=== PATIENT | female | born 1980 | race Hispanic/Latino ===

== ENCOUNTER 2017-12-11 01:37 | Inpatient (IN) | payer OTHER ==
[2017-12-11 02:24] VITALS: BMI 27.8
[2017-12-11] MEDS ORDERED: Oxytocin 30 units/LR 500ML 30 U/500 ML BAG IV SCH (02:30)
[2017-12-11] MEDS: Lactated Ringer's 1,000 ML IV SCH ×2 (02:30→03:40)
[2017-12-11] MEDS ORDERED: Penicillin G Potassium 5 MU in Sodium Chloride 0.9% 50 ML IVPB ONE (02:37)
[2017-12-11] MEDS ORDERED: Penicillin G 5 Million Unit Vial IVPB ONE (02:55)
--- NOTE | 2017-12-11 03:14 | OBHP ---
Datetime: 12/11/2017 02:03 IP Adm Impression: , intrauterine IP Admit Plan: Initiate Section protocol Admit Comment, IP Provider: 37 yo at 36+2 w/ EDC by 6 wk u/s, reports that she had a gush of clear fluid around 01:15am. Pt reports that she feels like the baby is pushing, denies VB, reports FM. Pt reports that she was told she had "high fluid" on 12/07/2017. Pt has a h/o previous c/s and desires and a repeat c/s w/ bilateral tubal ligation. Pt received her PNC w/ Carep oint w/ Dr. Rosenberg. PMH: Healthy PSH: anal warts- burned and removed 01/2017 section 2006 endoscopy/ colonoscopy 2016 SAB, D_C 2006 Meds: PNVs All: NKDA Fam hx: M cervical and rectal cancer, lupus M uncle triple bypass F-HIV, renal failure Soc hx: Pt reports that she quit smoking w/ the Pt denies alcohol and illicit drug use POb hx: 05/2007 c/s, female, 6#8 2005 SAB, D_C PE: AFVSS Gen'l: Pt appears in NAD Heart: RRR Chest: lungs CTA b/l Abd: soft, NT, gravid Ext: NT, no edema Pt appears grossly ruptured for clear fluid A/P: 37 yo at 36+2 wks w/ PPROM, admitted to L_D FHT reassuring GBS status unknown, will start penicillin for GBS prophylaxis Sree sign consents for surgery and possible transfusion Extremities - PN: Normal Abdomen - PN: Normal Lungs - PN: Normal Heart - PN: Normal General - PN: Normal FHR - Baseline A Provider: 130's Amniotic Fluid Color, Provider: Clear Membranes, Provider: Ruptured Contraction Comments Provider: irregular EGA AdmitDate IP: 36.2 IP Chief Complaint: Suspected ruptured membranes NICHD Variability Prov Fetus A: Moderate 6-25bpm NICHD Accel Fetus A IP Provider: [id number] FHR Category Provider Fetus A: Category II Dilatation, Provider: 0 Effacement, Provider: 0 Station, Provider: -3 Genitourinary Exam: Normal
[2017-12-11] MEDS ORDERED: Nalbuphine 20 mg/ml Inj (1 ml) IVP PRN (03:29)
[2017-12-11 03:43] LABS: BASO % 0.3 % (0.0-2.0); EOS % 0.4 % (0.0-4.0); LYMPH # 4.2 K/uL (1.0-4.3); LYMPH % 32.6 % (20.0-40.0); MEAN CELL VOLUME 95.5 fl (81.0-99.0); MEAN CORPUSCULAR HGB CONC 34.5 g/dL (33.0-37.0); MEAN PLATELET VOLUME 11.5 fl (7.2-11.7); MONO # 0.9 K/uL (0.0-0.8); MONO % 7.2 % (0.0-10.0); NEUT # 7.7 K/uL (1.8-7.0); NEUT % 59.5 % (50.0-75.0); NRBC % 0.1 % (0.0-0.0); RBC 3.33 Mil/uL (3.80-5.20); RED CELL DISTRIBUTION WIDTH 13.7 % (11.5-14.5); WHITE BLOOD COUNT 12.9 K/uL (4.8-10.8)
[2017-12-11] MEDS ORDERED: Bicitra 30 ML UD PO ONE (03:47)
[2017-12-11] MEDS ORDERED: Lactated Ringer's 1,000 ML IV SCH ×2 (07:45→13:08)
[2017-12-11] MEDS ORDERED: ePHEDrine 50 mg/ml Inj ONE (08:27)
[2017-12-11] MEDS ORDERED: Morphine 1 mg/ml preservative-free Inj(Duramorph) ONE (08:27)
--- NOTE | 2017-12-11 08:53 | HP ---
HISTORY OF PRESENT ILLNESS: This is a 37-year-old -0-1-1 at 36 weeks and 2 days with an EDC of 01/06/2018 by 6-week ultrasound who presents with having a gush of clear fluid at around 1:15 a.m. She reports that she feels the baby pushing. She denies vaginal bleeding. She reports movement. The patient has a history of a previous section and desires a bilateral tubal ligation. The patient reports that she was told she had ''high fluid'' on 12/07/2017. The patient received her care with Etub[facility] with Dr. Rosenberg. She is advanced maternal age. She is Rh negative. The patient received RhoGAM on 11/03/2017. Her first trimester screen done on 07/06/2017 was positive for increased risk for Down syndrome. The patient had declined genetic counseling. PAST MEDICAL HISTORY: Healthy. PAST SURGICAL HISTORY: Anal warts removed in 01/2017, section in 05/2007, endoscopy and colonoscopy in 09/2016, and the patient had dilation and curettage for a miscarriage around 2005. MEDICATIONS: vitamins. ALLERGIES: NO KNOW DRUG ALLERGIES. FAMILY HISTORY: Mother with cervical and rectal cancer and lupus, maternal uncle with triple bypass, and father with HIV and renal failure. SOCIAL HISTORY: The patient quit tobacco with . She denies of ever alcohol and illicit drug use. PAST GYNECOLOGIC HISTORY: The patient denies any abnormal Paps and STDs. Her menarche was at 12 and she gets periods every month. PAST OBSTETRIC HISTORY: She underwent D and C from miscarriage of around 2005 and she underwent a section of a female infant weighing 6 pounds 8 ounces in 05/2007. LABS: On 10/18/2016, Pap smear was negative. HPV was negative. On 05/09/2017, urine culture was no growth. On 05/09/2017, hemoglobin electrophoresis was normal, varicella zoster virus was positive. Hepatitis B surface antigen was negative. Rubella immune, RPR nonreactive. Blood type is O negative. SMN1 copy number was 2, reduced carrier risk. Fragile X was negative. HIV nonreactive. Antibody screen was negative. On 05/23/2017, gonorrhea, Chlamydia, and HPV were not detected and Pap smear was negative. On 07/06/2017, Panorama was low risk male fetus. On 08/15/2017, AFP was negative. On 09/12/2017, one-hour Glucola was 123. RPR was nonreactive. HIV was nonreactive. Antibody screen was negative. PHYSICAL EXAMINATION: VITAL SIGNS: Afebrile. Vital signs are stable. GENERAL: The patient appears in no acute distress. HEART: Regular rate and rhythm. CHEST: Lungs are clear to auscultation bilaterally. ABDOMEN: Soft, nontender, gravid. EXTREMITIES: Nontender. No edema. PELVIC: The patient appears grossly ruptured. Nitrazine positive. Fluid appears clear. ASSESSMENT AND PLAN: This is a 37-year-old -0-1-1 at 36 weeks and 2 days with premature rupture of membranes. The patient was admitted to labor and delivery. heart tracing is reassuring. IV fluids started. GBS status is unknown. Penicillin started for GBS prophylaxis. The patient is to be consented for section and bilateral tubal ligation. Amna Cavazos MD MTDD
[2017-12-11] MEDS ORDERED: DiphenhydrAMINE 50 mg/ml Inj IVP PRN ×2 (09:38→13:08)
[2017-12-11] MEDS ORDERED: Oxycodone/Acetaminophen 5/325 mg Tab PO PRN ×3 (10:06→13:08)
--- NOTE | 2017-12-11 13:09 | OP ---
PROCEDURE DATE: 12/11/2017 PREOPERATIVE DIAGNOSES: This is a 37-year-old -0-1-1 at 36 plus 2 weeks with premature rupture of membranes with history of previous section desires repeat section and desires permanent sterilization. POSTOPERATIVE DIAGNOSES: This is a 37-year-old -0-1-1 at 36 plus 2 weeks with premature rupture of membranes with history of previous section desires repeat section and desires permanent sterilization. PROCEDURE: Repeat low transverse section and bilateral partial salpingectomy. SURGEON: Amna Cavazos MD ASSISTANTS: Drs. Washburn and Sultan Parr, PGY-1. Dr. Washburn was the first medical or surgical instrument maker and participated in the surgery for the entire duration of the case. He helped create exposure. He also helped maintain hemostasis, operated throughout the case on the side of the patient that was across from him and assisted in delivery of the infant by applying fundal pressure. Dr. Washburn also helped dissect the uterine adhesions so as to free the uterus so that the tubal could take place. This case could not have been completed without his assistance. TYPE OF ANESTHESIA: Spinal. ANESTHESIA ADMINISTERED BY: Dr. Ollie Morgan. FINDINGS: A viable male delivered through clear fluid at 9:11 a.m. Apgars were 9 and 9 at 1 and 5 minutes respectively. The weight was 4 pounds 15 ounce or 2250 grams. Normal-appearing uterus, tubes and ovaries. Uterus with filmy adhesions to the pelvic sidewalls. The bladder was also noted to be scarred to the uterus. ESTIMATED BLOOD LOSS: 800 mL. DESCRIPTION OF PROCEDURE: The patient was taken to the operating room where spinal anesthesia was placed. She was then prepped and draped in the normal sterile fashion in the dorsal supine position with a leftward tilt. A Raymond was placed in the bladder. The spinal was tested and found to be adequate. A Pfannenstiel skin incision was then made with the scalpel and carried through to the underlying layer of fascia with the Bovie. The fascia was incised in the midline and the incision was extended laterally with the Bovie over a Nanci clamp. The inferior aspect of the fascial incision was then grasped with the Rose clamps, elevated and the underlying rectus muscles were dissected off bluntly and with the Bovie. Attention was then turned to the superior aspect of this incision, which in a similar fashion was grasped, tented up with the Rose clamps, and the rectus muscles dissected off bluntly and with the Bovie. The rectus muscles were then in the midline and the peritoneum was identified, tented up and entered sharply with the Metzenbaum scissors. The peritoneal incision was then extended superiorly and inferiorly with good visualization of the bladder. The bladder blade was then inserted and the vesicouterine peritoneum was identified, grasped with the pickups and entered sharply with the Metzenbaum scissors. This incision was then extended laterally and the bladder flap was created digitally. The bladder blade was then reinserted and the lower uterine segment was incised in transverse fashion with the scalpel. The uterine incision was then extended digitally in a cephalocaudad direction. The bladder blade was removed and the infant's head was delivered atraumatically. The nose and mouth were suctioned with the bulb suction. The cord was clamped and cut. The infant was handed off to the awaiting cake icer and packer. Cord blood was collected. The placenta was then removed manually. The filmy adhesions that were holding uterus to the pelvic side ashley were excised with the Bovie. The uterus was then able to be exteriorized and cleared of all clots and debris with a dry sponge curettage. The uterine incision was repaired with 0 Vicryl in a running locked fashion. A second layer of the same suture was used for hemostasis. Attention was then turned to the patient's right tube which was isolated, then doubly clamped with Nanci clamps, transected, and suture ligated with 2-0 plain x 2. Attention was then turned to the patient's left tube which was isolated, doubly clamped, transected and suture ligated in a similar fashion. The abdomen was then well irrigated. The uterus was returned to the abdomen. The gutters were cleared of all clots. The uterine incision was re-examined and the Bovie was applied to the small bleeders. The pedicles of the tubes were re-examined and found to be hemostatic. Interrupted stitches of 2-0 plain gut were then used to reapproximate the rectus muscle. The fascia was re-approximated with 0 Vicryl in a running fashion. The subcutaneous fat was well irrigated. The space of the fat was closed with running stitch of 2-0 plain gut. The skin was then closed in a subcuticular fashion with 4-0 Monocryl. The patient tolerated the procedure well. Sponge, lap, and needle counts were correct. The patient had received penicillin for GBS prophylaxis prior to the procedure. The patient was taken to the recovery room in stable condition. Amna Cavazos MD MTDD
--- NOTE | 2017-12-11 13:17 | OBDS ---
DELIVERY PERSONNEL Delivery Doctor: Jasiel Cavazos MD Scrub Nurse: Sandy Skinner OBT Embalmer/Funeral Director: Bernarda Kelly RN Anesthesiologist: Lucinda Morgan MD Resident: Dr. Parr MATERNAL INFORMATION Delivery Anesthesia: Spinal Medications in Delivery: Oxytocin Estimated Blood Loss (ml): 800 Placenta Cultured: No Maternal Complications: Premature Rupture of Membranes Provider Comments: Pre-op dx: 37 yo at 36+2 wks w/ PPROM, h/o previous section , de sires repeat c/s, desires permanent sterilization Post-op dx: Same Procedure: Repeat low transverse section, b/l partial salpingectomy Surgeon: Macy [employer] Inspector: Drs. Washbunr and Sultan Parr, PGY-1 Anesthesiologist: Dr. Morgan Anesthesia: Spinal Findings: Viable male infant delivered through clear fluid at 09:11 am. Apgars 9 and 9. Wt. 4#15 , 2250 gms, Nl appearing uterus, tubes and ovaries. Uterus w/ filmy adhesions to pelvic side ashley. Bladder was adherent to the uterus. EBL: 800mL LABOR SUMMARY EDC: 01/06/2018 00:00 No. Babies in Womb: 1 Attempted: No Labor Anesthesia: None LABOR INFORMATION Reason for Induction: Not Applicable Oxytocin: N/A Group B Beta Strep: Not Done Antibiotics # of Doses: 2 Antibiotics Time of Last Dose: 714 Steroids Given: None Reason Steroids Not Administered: Not Applicable MEMBRANES Membranes Rupture Method: Spontaneous Rupture of Membranes: 12/11/2017 01:15 Length of Rupture (hrs): 7.93 Amniotic Fluid Color: Clear Amniotic Fluid Amount: Large Amniotic Fluid Odor: Normal STAGES OF LABOR Stage 3 hrs: 0 Stage 3 min: 1 CSECTION DELIVERY Primary Indication: Repeat Elective Secondary Indication: Repeat Elective CSection Urgency: Elective CSection Incidence: Repeat Labor: No Labor Elective: N/A CSection Incision: Lower Uterine Transverse BABY A INFORMATION Infant Delivery Date/Time: 12/11/2017 09:11 Method of Delivery: Born in Route : No : N/A Forceps: N/A Vacuum Extraction: N/A Shoulder Dystocia : No SHOULDER DYSTOCIA BABY A Delivery Date/Time: 12/11/2017 09:11 PRESENTATION/POSITION BABY A Presentation: Cephalic Cephalic Presentation: Vertex Breech Presentation: N/A PLACENTA INFORMATION BABY A Placenta Delivery Time : 12/11/2017 09:12 Placenta Method of Delivery: Spontaneous Placenta Status: Delivered SCORES BABY A Heart Rate 1 min: >100 bpm Resp Effort 1 min: Good Cry Reflex Irritability 1 min: Cough or Sneeze or Pulls Away Muscle Tone 1 min: Active Motion Color 1 min: Body [place], Extremities Blue Resuscitation Effort 1 min: Tactile Stimulation; Oxygen SCORE 1 MIN: 9 Heart Rate 5 min: >100 bpm Resp Effort 5 min: Good Cry Reflex Irritability 5 min: Cough or Sneeze or Pulls Away Muscle Tone 5 min: Active Motion Color 5 min: Body [place], Extremities Blue Resuscitation Effort 5 min: Tactile Stimulation; Oxygen SCORE 5 MIN: 9 INFORMATION BABY A Gestational Age at Delivery: 36.0 Gestational Status: Outcome : Liveborn Condition : Stable Infant Sex: Male IDENTIFICATION/MEDS BABY A ID Band Number: [id number] ID Band Location: Left Leg; Left Arm WEIGHT/LENGTH BABY A Birthweight (gms): 2250 Weight (lb): 4 Weight (oz): 15 CORD INFORMATION BABY A No. Cord Vessels: 3 Nuchal Cord : N/A Cord Blood Taken: N/A Infant Suction: Mouth; Nose ASSESSMENT BABY A Complications: None Physical Findings at Delivery: Other Physical Findings Other: hypospadias Infant Respirations: Grunting; Sternal Retractions Director Of Emergency Nursing/ALS Called : No Infant Care By: Shannon Castillo/ Dr. Del Cid Transferred To: [facility]
[2017-12-11] MEDS ORDERED: Simethicone 80 mg Chewtab PO SCH (16:00)
[2017-12-11] MEDS: Simethicone 80 mg Chewtab PO SCH (21:05)
[2017-12-12] MEDS: Simethicone 80 mg Chewtab PO SCH ×4 (04:20→21:59)
[2017-12-12 06:45] LABS: HEMOGLOBIN 7.9 g/dL (12.0-16.0); MEAN CELL VOLUME 95.8 fl (81.0-99.0); MEAN CORPUSCULAR HEMOGLOBIN 32.7 pg (27.0-31.0); MEAN CORPUSCULAR HGB CONC 34.1 g/dL (33.0-37.0); RBC 2.41 Mil/uL (3.80-5.20); RED CELL DISTRIBUTION WIDTH 13.8 % (11.5-14.5); WHITE BLOOD COUNT 16.7 K/uL (4.8-10.8)
[2017-12-12] MEDS: Oxycodone/Acetaminophen 5/325 mg Tab PO PRN ×3 (11:42→21:59)
--- NOTE | 2017-12-12 12:07 | OBPPN ---
Datetime: 12/12/2017 12:04 PP Pain Prov: Within normal limits PP Nausea Prov: Denies PP Flatus Prov: No PP Breasts Prov: Normal PP Heart Prov: Normal PP Lungs Prov: Normal PP Abdomen/Uterus Prov: Normal PP Lochia Prov: Normal PP Vulva/Perineum Prov: Normal PP CVA Tenderness Prov: Normal PP Extremities Prov: Normal PP Comments Phys Exam Prov: Fundus firm under umbilicus Incision clean/dry/intact PP Impression Prov: Normal progression PP Plan Prov: Continue present management PP Progress Note Prov: Patient denies CP, no SOB, no N/V, tolerating PO diet, ambulating/voiding wel l, abdominal pain tolerable with meds, mild lochia, no flatus A/P POD #1 1. Regular diet 2. Motrin/Percocet prn pain 3. Colace prn constipation 4. Encourage ambulation and IP PP Procedures: None Vital Signs Provider PP: Reviewed; Within Normal Limits
[2017-12-13] MEDS: Oxycodone/Acetaminophen 5/325 mg Tab PO PRN ×2 (04:09→16:33)
[2017-12-13] MEDS: Simethicone 80 mg Chewtab PO SCH ×4 (04:09→21:47)
--- NOTE | 2017-12-13 11:25 | OBPPN ---
Datetime: 12/13/2017 11:19 PP Pain Prov: Within normal limits PP Nausea Prov: Denies PP Flatus Prov: Yes PP BM Prov: No PP Breasts Prov: Normal PP Heart Prov: Normal PP Lungs Prov: Normal PP Abdomen/Uterus Prov: Normal PP Lochia Prov: Normal PP Vulva/Perineum Prov: Not Done PP CVA Tenderness Prov: Normal PP Extremities Prov: Normal PP C/S Incision Prov: Normal PP Progress Prov: Normal PP Impression Prov: Normal progression PP Plan Prov: Continue present management PP Impression Other Prov: Anemia PP Progress Note Prov: She feels fine; no dizziness; no SOB; No CP; ambulating without difficulty; t olerating diet H/H 03/20 Rh neg; baby is Rh neg A: S/P section day 2 anemia- asymptomatic Rh Neg - baby Rh neg - no Rhogam needed PLAN: discussion about anemia; she feels fine; Iron upon discharge; anticiapte going home in AM Vital Signs Provider PP: Reviewed; Within Normal Limits
[2017-12-14] MEDS: Oxycodone/Acetaminophen 5/325 mg Tab PO PRN (01:12)
[2017-12-14] MEDS: Simethicone 80 mg Chewtab PO SCH ×3 (04:45→16:48)
--- NOTE | 2017-12-14 10:20 | OBPPN ---
Datetime: 12/14/2017 10:19 PP Pain Prov: Within normal limits PP Nausea Prov: Denies PP Flatus Prov: Yes PP Breasts Prov: Not Done PP Heart Prov: Normal PP Lungs Prov: Normal PP Abdomen/Uterus Prov: Not Done PP Lochia Prov: Not Done PP Vulva/Perineum Prov: Not Done PP CVA Tenderness Prov: Normal PP Extremities Prov: Normal PP C/S Incision Prov: Normal PP Impression Prov: Normal progression PP Plan Prov: Discharge PP Progress Note Prov: Patient doing well ambulating tolerating diet and voiding without difficulty Vital signs stable afebrile Uterus firm below the umbilicus Incision clean dry and intact No Homans Postoperative day #3 Discharged home Follow up with Dr. Weeks Nothing per vagina no heavy lifting Prescriptions provided Vital Signs Provider PP: Reviewed
--- NOTE | 2017-12-14 10:23 | OBDCSUM ---
Datetime: 12/14/2017 10:20 Discharged to, Provider: Home Follow up at, Provider: Dr. Micky Banks Instr Activity: Normal activity Disch Instr Diet: Regular Discharge Instructions, Provider: Routine instructions given Discharge Diagnosis, Provider: Term Delivered Follow up in weeks, Provider: 1 week Disch Referrals: None Contraception discussed, Prov: Yes Disch Activity Restrictions: No exercising; No lifting; No sexual activity; Nothing in vagina - Inte rcourse, tampons, douche Discharge Comment, Provider: Patient cleared for discharge Contraception after Delivery: Tubal Ligation
[2017-12-14 23:19] VITALS: BP 113/74; PULSE 73; RESP 20; TEMP 97.9; O2SAT 99
== END 2017-12-14 18:52 | disposition home or self-care (01) | DRG 766 ==
LOC: H.EROB2 01:37 → H.L&D 02:31 → H.OB/GYN 12:38
PROVIDERS: ADMIT Obstetrics & Gynecology; ATTEND Obstetrics & Gynecology
PROC: 10D00Z1 Extraction of Products of Conception, Low, Open Approach (ICD-10-PCS; principal; 2017-12-11)
PROC: 0UB70ZZ Excision of Bilateral Fallopian Tubes, Open Approach (ICD-10-PCS; 2017-12-11)
PROC: 4A1HXCZ Monitoring of Products of Conception, Cardiac Rate, External Approach (ICD-10-PCS; 2017-12-11)
DX: O34.211 Maternal care for low transverse scar from previous cesarean delivery (principal); Z37.0 Single live birth; N85.8 Other specified noninflammatory disorders of uterus; O42.913 Preterm premature rupture of membranes, unspecified as to length of time between rupture and onset of labor, third trimester; Z3A.36 36 weeks gestation of pregnancy; Z87.891 Personal history of nicotine dependence; Z30.2 Encounter for sterilization; N73.6 Female pelvic peritoneal adhesions (postinfective); Z80.0 Family history of malignant neoplasm of digestive organs